=== PATIENT | male | born 1970 | race Caucasian/White ===

== ENCOUNTER 2017-11-19 21:17 | Emergency (ER) | payer MEDICAID ==
--- NOTE | 2017-11-19 22:10 | ED Physician Chart ---
ED Chief Complaint/HPI - Patient Information Date Seen:: 11/19/17 Time Seen:: 22:06 Chief Complaint:: Right foot pain History of Present Illness:: 47 yo male with history of diabetes and right first toe amputation, developed right foot pain, 9/10, for 3 days. Had fever and chills. Allergies:: Allergies Allergy/AdvReac Type Severity Reaction Status Date / Time No Known Allergies Allergy Verified 11/19/17 21:52 Vitals:: Vital Signs - 8 hr 11/19/17 21:53 Temp 98.3 F HR 91 RR 18 BP 134/55 O2 Sat % 98 ED Review of Systems - Review of Systems General/Constitutional: No fever Skin: Skin lesions Head: No headache Eyes: No pain ENT: No nasal drainage Neck: No neck pain Cardio Vascular: No chest pain Pulmonary: No SOB GI: No vomiting Musculoskeletal: Bone or joint pain Neurological: Paresthesia ED Past Medical History - Past Medical History Past Medical History: HTN, DM Social History: Smoker, No Alcohol, No Drug Use Surgical History: other (right first toe amputation) Family Medical History - Family Member Mother History Unknown: Yes Ethnicity: Living Status: Still Living Hx Family Congestive Heart Failure: No Hx Family Hypertension: No Hx Family Stroke: No Hx Family Diabetes: Yes ED Physical Exam - Physical Examination General/Constitutional: Awake Head: Atraumatic Eyes: PERRL ENMT: Nasal exam nl Neck: No nuchal rigidity Respiratory: No Wheeze/Rhonchi/Rales Cardio Vascular: RRR, No murmur, gallop, rubs, NL S1 S2 GI: No tenderness/rebounding/guarding Other Extremities comments:: right first toe amputation, right 3rd toe infection Neuro/Psych: No focal deficits ED Labs/Radiology/EKG Results - Lab Results Results: Laboratory Last Values WBC 9.7 Th/cmm (4.8-10.8) 11/19/17 22:23 RBC 4.06 Mil/cmm (4.30-5.70) L 11/19/17 22:23 Hgb 12.2 gm/dL (12-16) 11/19/17 22:23 Hct 35.8 % (41.0-60) L 11/19/17 22:23 MCV 88.2 fl (80-99) 11/19/17 22:23 MCH 30.0 pg (26.0-30.0) 11/19/17 22:23 MCHC Differential 34.0 pg (28.0-36.0) 11/19/17 22:23 RDW 13.1 % (11.5-20.0) 11/19/17 22:23 Plt Count 296 Th/cmm (150-400) D 11/19/17 22:23 MPV 7.9 fl 11/19/17 22:23 Neutrophils % 64.7 % (40.0-80.0) 11/19/17 22:23 Lymphocytes % 24.3 % (20.0-50.0) 11/19/17 22:23 Monocytes % 6.9 % (2.0-10.0) 11/19/17 22:23 Eosinophils % 3.7 % (0.0-5.0) 11/19/17 22: Basophils % 0.4 % (0.0-2.0) 11/19/17 22:23 Sodium 136 mEq/L (136-145) 11/19/17 22:23 Potassium 3.6 mEq/L (3.5-5.1) 11/19/17 22:23 Chloride 104 mEq/L (98-107) 11/19/17 22:23 Carbon Dioxide 25.5 mEq/L (21.0-31.0) 11/19/17 22:23 Anion Gap 10.1 (7.0-16.0) 11/19/17 22:23 BUN 16 mg/dL (7-25) 11/19/17 22:23 Creatinine 0.9 mg/dL (0.7-1.3) 11/19/17 22:23 Est GFR ( Amer) > 60.0 ml/min (>90) 11/19/17 22:23 Est GFR (Non-Af Amer) > 60.0 ml/min 11/19/17 22:23 BUN/Creatinine Ratio 17.8 11/19/17 22:23 Glucose 202 mg/dL (70-105) H 11/19/17 22:23 Hemoglobin A1c % 7.7 % (4.0-6.0) H 11/19/17 22:23 Calcium 8.6 mg/dL (8.6-10.3) 11/19/17 22:23 Total Bilirubin 0.3 mg/dL (0.3-1.0) 11/19/17 22:23 AST 19 U/L (13-39) 11/19/17 22:23 ALT 16 U/L (7-52) 11/19/17 22:23 Alkaline Phosphatase 72 U/L (34-104) 11/19/17 22:23 Total Protein 6.8 gm/dL (6.0-8.3) 11/19/17 22:23 Albumin 3.7 gm/dL (4.2-5.5) L 11/19/17 22:23 Globulin 3.1 gm/dL 11/19/17 22:23 Albumin/Globulin Ratio 1.2 (1.0-1.8) 11/19/17 22:23 ED Assessment - Assessment General Assessment: DM II, uncontrolled Right foot cellulitis Assessment/Comments:: CBC, CMP, HbA1c Vancomycin Zosyn Planned on admitting patient to med surg Patient left against medical advice ED Septic Shock - . Is Septic Shock (SBP<90, OR Lactate>4 mmol\L) present?: No - <6hrs of presentation: Vital Signs: Vital Signs - 8 hr 11/19/17 21:53 Temp 98.3 F HR 91 RR 18 BP 134/55 O2 Sat % 98 ED Reassessment (Disposition) - Reassessment Reassessment Condition:: Improved - Patient Disposition Discharge/Transfer:: Against Medical Advice ED Discharge Plan - Patient Disposition Admit/Discharge/Transfer: AGAINST MEDICAL ADVICE Condition at Disposition: Stable Instructions: Cellulitis
[2017-11-19 22:29] LABS: % BASOPHILS 0.4 % (0.0-2.0); % EOSINOPHILS 3.7 % (0.0-5.0); % LYMPHOCYTES 24.3 % (20.0-50.0); % MONOCYTES 6.9 % (2.0-10.0); % NEUTROPHILS 64.7 % (40.0-80.0); EOSINOPHILE ABSOLUTE 0.4 Th/cmm (0.1-0.4); HEMATOCRIT 35.8 % (41.0-60); HEMOGLOBIN 12.2 gm/dL (12-16); LYMPHOCYTE ABSOLUTE 2.4 Th/cmm (1.5-3.0); MEAN CELL VOLUME 88.2 fl (80-99); MEAN PLATELET VOLUME 7.9 fl; MONOCYTE ABSOLUTE 0.7 Th/cmm (0.3-1.0); NEUTROPHILE ABSOLUTE 6.2 Th/cmm (1.8-8.0); RED BLOOD COUNT 4.06 Mil/cmm (4.30-5.70); RED CELL DISTRIBUTION WIDTH 13.1 % (11.5-20.0); WHITE BLOOD COUNT 9.7 Th/cmm (4.8-10.8)
[2017-11-19 22:38] LABS: PLATELET COUNT 296 Th/cmm (150-400)
[2017-11-19 22:47] LABS: ALB/GLOB RATIO 1.2 (1.0-1.8); ALBUMIN 3.7 gm/dL (4.2-5.5); ALKALINE PHOSPHATASE 72 U/L (34-104); ANION GAP 10.1 (7.0-16.0); BILIRUBIN,TOTAL 0.3 mg/dL (0.3-1.0); BUN - UREA NITROGEN 16 mg/dL (7-25); CALCIUM SERUM 8.6 mg/dL (8.6-10.3); CARBON DIOXIDE 25.5 mEq/L (21.0-31.0); CHLORIDE 104 mEq/L (98-107); CREATININE - SERUM 0.9 mg/dL (0.7-1.3); GFR AFRICAN-AMERICAN > 60.0 ml/min (>90); GFR NON AFRICAN-AMERICAN > 60.0 ml/min; GLUCOSE 202 mg/dL (70-105); POTASSIUM SERUM 3.6 mEq/L (3.5-5.1); SGOT 19 U/L (13-39); SGPT/ALT 16 U/L (7-52); SODIUM SERUM 136 mEq/L (136-145); TOTAL PROTEIN,SERUM 6.8 gm/dL (6.0-8.3)
[2017-11-20] MEDS ORDERED: Piperacillin Sodium/Tazobact 3.375 gm Vial IV ONE (00:41)
[2017-11-20 21:45] LABS: A1C % 7.7 % (4.0-6.0)
== END 2017-11-20 01:36 | disposition left against medical advice (07) ==
LOC: ER 21:17
DX: M79.671 Pain in right foot (principal); I10 Essential (primary) hypertension; E11.9 Type 2 diabetes mellitus without complications
CPT/HCPCS: 99284; 96365; 96368; 36415; 87075; 87205; 85025; 83036; 80053; 87081; J2543; J3370; Z7502